=== PATIENT | male | born 1960 | race African-American/Black ===

== ENCOUNTER 2018-01-15 11:24 | Emergency (ER) | payer SELFPAY ==
[~2018-01-15] VITALS: Ht 175.3 cm; Wt 99.8 kg
[2018-01-15 11:29] VITALS: BP 163/109
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
== END 2018-01-15 12:07 | disposition home or self-care (01) ==
LOC: ER 11:27
DX: M25.512 Pain in left shoulder (principal); R51 Headache; I10 Essential (primary) hypertension; E11.9 Type 2 diabetes mellitus without complications; V29.1 Motorcycle passenger injured in collision with other and unspecified motor vehicles in nontraffic accident; Y93.89 Activity, other specified; Y92.410 Unspecified street and highway as the place of occurrence of the external cause; Y99.8 Other external cause status
CPT/HCPCS: 99283; A4606; Z7610